=== PATIENT | female | born 1955 | race American Indian/Alaskan Native ===

== ENCOUNTER 2016-08-08 13:19 | Inpatient (IN) | payer MEDICAID, OTHER ==
[2016-08-08 13:38] VITALS: BMI 24.7
--- NOTE | 2016-08-08 14:02 | ED PDOC ---
Arrival/HPI - General Chief Complaint: Psychiatric Evaluation Time Seen by Provider: 08/08/16 13:44 Historian: Patient, EMS - History of Present Illness Narrative History of Present Illness (Text): 08/08/16 13:45 A 61 year old female brought to the emergency department from the [facility] via EMS for depression and suicidal ideations. Patient admits to having suicidal ideation but denies any plan. Patient denies any fever or other medical complaints at this time. Patient denies any homicidal ideation, visual/auditory hallucinations. Time/Duration: Prior to Arrival Symptom Onset: Sudden Symptom Course: Unchanged Quality: Other Activities at Onset: Rest Context: Other Past Medical History - Provider Review Nursing Documentation Reviewed: Yes - Infectious Disease Hx of Infectious Diseases: None - Cardiac Hx Hypertension: Yes - Endocrine/Metabolic Hx Diabetes Mellitus Type 2: Yes - Musculoskeletal/Rheumatological Other/Comment: neuropathy - Psychiatric Hx Substance Use: No Family/Social History - Physician Review Nursing Documentation Reviewed: Yes Family/Social History: Unknown Family HX Smoking Status: Never Smoked Hx Alcohol Use: No Hx Substance Use: No Allergies/Home Meds Allergies/Adverse Reactions: Allergies No Known Allergies Allergy (Verified 08/08/16 13:38) Home Medications: Home Meds Medication Instructions Recorded Confirmed Alogliptin Benzoate [Alogliptin] 25 mg PO DAILY 08/08/16 08/08/16 Calcium Carbonate [Calcium] 600 mg PO DAILY 08/08/16 08/08/16 Fluvoxamine Maleate [Fluvoxamine 300 mg PO HS 08/08/16 08/08/16 Maleate ER] Gabapentin [Neurontin] 300 mg PO TID 08/08/16 08/08/16 Lisinopril [Zestril] 10 mg PO DAILY 08/08/16 08/08/16 Metformin HCl [Glucophage] 1,000 mg PO BID 08/08/16 08/08/16 Simvastatin [Simvastatin] 10 mg PO DAILY 08/08/16 08/08/16 Ziprasidone HCl [Ziprasidone HCl] 80 mg PO BID 08/08/16 08/08/16 Review of Systems - Physician Review All systems were reviewed & negative as marked: Yes - Review of Systems Constitutional: absent: Fevers Cardiovascular: absent: Chest Pain Psychiatric: Depression, Suicidal Ideation, Other (no homicidal ideation or visual/auditory hallucinations.) Physical Exam Vital Signs Reviewed: Yes Vital Signs Temp Pulse Resp BP Pulse Ox 08/08/16 16:49 98 F 70 18 139/79 100 08/08/16 13:30 97.5 F L 70 16 116/61 99 Temperature: Afebrile Blood Pressure: Normal Pulse: Regular Respiratory Rate: Normal Appearance: Positive for: Well-Appearing, Non-Toxic, Comfortable Pain Distress: None Mental Status: Positive for: Alert and Oriented X 3 - Systems Exam Head: Present: Atraumatic, Normocephalic Pupils: Present: PERRL Extroacular Muscles: Present: EOMI Conjunctiva: Present: Normal Mouth: Present: Moist Mucous Membranes Neck: Present: Normal Range of Motion Respiratory/Chest: Present: Clear to Auscultation, Good Air Exchange. No: Respiratory Distress, Accessory Muscle Use Cardiovascular: Present: Regular Rate and Rhythm, Normal S1, S2. No: Murmurs Abdomen: Present: Normal Bowel Sounds. No: Tenderness, Distention, Peritoneal Signs Back: Present: Normal Inspection Upper Extremity: Present: Normal Inspection. No: Cyanosis, Edema Lower Extremity: Present: Normal Inspection. No: Edema Neurological: Present: GCS=15, CN II-XII Intact, Speech Normal Skin: Present: Warm, Dry, Normal Color. No: Rashes Psychiatric: Present: Alert, Oriented x 3, Normal Insight, Normal Concentration , Depressed Mood, Suicidal Ideation Medical Decision Making ED Course and Treatment: 08/08/16 13:45 Impression: A 61 year old female sent in from the [facility]. Differential Diagnosis include but are not limited to: Depression vs. Suicidal Plan: -- EKG -- Chest X-ray -- Labs -- Urinalysis -- Reassess and disposition Progress Notes: 08/08/16 15:16 ekg sinus [address] changes, medically clear - Lab Interpretations Lab Results: 08/08/16 14:17 08/08/16 14:17 Lab Results 08/08/16 14:30: Urine Color Yellow, Urine Appearance Clear, Urine pH 7.0, Ur Specific [place] 1.020, Urine Protein Trace H, Urine Glucose (UA) Negative, Urine Ketones Trace H, Urine Blood Trace-intact H, Urine Nitrate Negative, Urine Bilirubin Negative, Urine Urobilinogen 2.0 H, Ur Leukocyte Esterase Negative, Urine RBC 0 - 2, Urine WBC 0 - 2, Ur Epithelial Cells 1 - 3, Urine Bacteria Trace, Urine Opiates Screen Negative, Urine Methadone Screen Negative, Ur Barbiturates Screen Negative, Ur Phencyclidine Scrn Negative, Ur Amphetamines Screen Negative, U Benzodiazepines Scrn Negative, U Oth Cocaine Metabols Negative, U Cannabinoids Screen Negative 08/08/16 14:17: WBC 3.8 L D, RBC 4.42, Hgb 12.7, Hct 37.6, MCV 85.1, MCH 28.7, MCHC 33.8, RDW 14.0, Plt Count 209, MPV 9.2, Gran % 59.4, Lymph % (Auto) 28.5, [place] % (Auto) 9.2 H, Eos % (Auto) 2.4, Baso % (Auto) 0.5, Gran # 2.25, Lymph # 1.1 L, [place] # 0.4, Eos # 0.1, Baso # 0.02, Sodium 141, Potassium 3.9, Chloride 102, Carbon Dioxide 27, Anion Gap 16, BUN 13, Creatinine 1.1, Est GFR ( Amer) > 60, Est GFR (Non-Af Amer) 50, Random Glucose 122 H, Calcium 10.0, Total Bilirubin 0.6, AST 25, ALT 33, Alkaline Phosphatase 101, Total Protein 7.6, Albumin 4.2, Globulin 3.4, Albumin/Globulin Ratio 1.2, Salicylates < 1 L, Acetaminophen < 10.0 L, Alcohol, Quantitative < 10 I have reviewed the lab results: Yes - RAD Interpretation Radiology Orders: 08/08/16 13:50 CHEST PORTABLE [RAD] Stat - Scribe Statement The provider has reviewed the documentation as recorded by the Merlineibnatalie Whitten Provider Scribe Attestation: All medical record entries made by the Scribe were at my direction and personally dictated by me. I have reviewed the chart and agree that the record accurately reflects my personal performance of the history, physical exam, medical decision making, and the department course for this patient. I have also personally directed, reviewed, and agree with the discharge instructions and disposition. Disposition/Present on Arrival - Present on Arrival Any Indicators Present on Arrival: No History of DVT/PE: No History of Uncontrolled Diabetes: Yes Urinary Catheter: No History of Decub. Ulcer: No History Surgical Site Infection Following: None - Disposition Have Diagnosis and Disposition been Completed?: Yes Diagnosis: Depression Disposition: HOSPITALIZED Disposition Time: 17:39 Condition: STABLE
[2016-08-08 14:20] LABS: ADD MANUAL DIFF? NO
[2016-08-08 14:23] LABS: BASO # 0.02 K/mm3 (0.0-2.0); BASO % 0.5 % (0.0-3.0); EOS # 0.1 (0.0-0.7); EOS % 2.4 % (1.5-5.0); GRAN # 2.25 (1.4-6.5); GRAN % 59.4 % (50.0-68.0); HEMATOCRIT 37.6 % (36.0-48.0); LYMPH # 1.1 (1.2-3.4); LYMPH % 28.5 % (22.0-35.0); MEAN CELL VOLUME 85.1 fL (80.0-105.0); MEAN CORPUSCULAR HEMOGLOBIN 28.7 pg (25.0-35.0); MEAN CORPUSCULAR HGB CONC 33.8 g/dl (31.0-37.0); MEAN PLATELET VOLUME 9.2 fl (7.0-11.0); MONO # 0.4 (0.1-0.6); MONO % 9.2 % (1.0-6.0); PLATELET COUNT 209 10^3/uL (120.0-450.0); WHITE BLOOD COUNT 3.8 10^3/ul (4.5-11.0)
[2016-08-08 14:33] LABS: ALB/GLOB RATIO 1.2 (1.1-1.8); ALKALINE PHOSPHATASE 101 U/L (38-133); ALT/SGPT 33 U/L (7-56); AST/SGOT 25 U/L (15-39); BILIRUBIN,TOTAL 0.6 mg/dL (0.2-1.3); BLOOD UREA NITROGEN 13 mg/dL (7-21); CARBON DIOXIDE 27 mmol/L (21-33); CHLORIDE 102 mmol/L (98-107); GFR AFRICAN-AMERICAN > 60; GLUCOSE,RANDOM 122 mg/dL (70-110); POTASSIUM 3.9 mmol/L (3.6-5.0); SODIUM 141 mmol/L (132-148); TOTAL PROTEIN 7.6 g/dL (5.8-8.3)
[2016-08-08 14:38] LABS: URINE BILIRUBIN NEGATIVE (NEGATIVE); URINE BLOOD TRACE-INTACT (NEGATIVE); URINE GLUCOSE (UA) NEGATIVE (NEGATIVE); URINE KETONE TRACE mg/dL (NEGATIVE); URINE LEUKOCYTE ESTERASE NEGATIVE Leu/uL (NEGATIVE); URINE PROTEIN TRACE mg/dL (<30 mg/dL)
[2016-08-08 14:40] LABS: URINE APPEARANCE CLEAR (CLEAR); URINE COLOR YELLOW (YELLOW)
--- NOTE | 2016-08-08 14:42 | RAD ---
HISTORY: pysch COMPARISON: None available TECHNIQUE: Chest, one view. FINDINGS: LUNGS: No focal consolidation. Please note that chest x-ray has limited sensitivity for the detection of pulmonary masses. PLEURA: No significant pleural effusion identified. No definite pneumothorax . CARDIOVASCULAR: The cardiomediastinal silhouette appears within normal limits of size. OSSEOUS STRUCTURES: Degenerative changes of the spine. VISUALIZED UPPER ABDOMEN: Unremarkable. OTHER FINDINGS: None. IMPRESSION: No focal consolidation, significant pleural effusion, or definite pneumothorax identified.
[2016-08-08 14:43] LABS: URINE BACTERIA TRACE (NEG); URINE RBC 0 - 2 /hpf (0-2); URINE WBC 0 - 2 /hpf (0-6)
[2016-08-08] MEDS ORDERED: Magnesium Hydroxide Susp 30 ml UD PO PRN (18:41)
[2016-08-08] MEDS ORDERED: Alum-Mag Hydrox-Simethicone Susp (30 mL) PO PRN (18:41)
[2016-08-09 08:11] LABS: CHOLESTEROL 161 mg/dL (130-200); GLUCOSE,FASTING 112 mg/dL (65-110)
--- NOTE | 2016-08-09 11:27 | HP ---
HISTORY OF PRESENT ILLNESS: The patient is a 61-year-old -[place] female with a history of s chizoaffective disorder, as well as 2 prior to admissions and history of 2 suicide attempts, currentl y in outpatient psychiatric treatment and reportedly compliant with her medications of Geodon, Luvox and gabapentin, who was sent to [facility] upon recommendation of her provider, , due to reporting depression and having command auditory hallucinations as well as suicidal thoughts. I reviewed ER records and recent notes on the unit and met with patient at bedside. The patient is a lert and oriented x 3 and focus is fair and eye contact is good. The patient presents as a fairly re liable historian and appears appropriately engaged with my interview questions. She indicates that s he is feeling a little bit better and she denies having any discomfort or pain. She denies having an y hallucinations at this time and she denies having any suicidal thoughts. The patient reports that she has been depressed "all her life." However, her depression has worsened lately and she denies campbell ving any stressors precipitating her worsening of symptoms. Specifically, the patient has noticed in crease in hopelessness, decreased energy, decreased motivation, moodiness and restless sleep and anxi ety. The patient also reports having command auditory hallucinations of voices telling her to kill h erself.. As noted, patient denies having any of these hallucinations at this time. The patient woul d like psychiatric stabilization on the unit at this time. Her insight and judgment are considered t o be fair. Impulse is considered to be in control and intact. SOCIAL HISTORY: The patient was born in [place] and raised in [place]. The patient is single and she has never been . She has no children. She lives by herself. She is unemployed and o n disability. She denies any drug, alcohol or tobacco issues. Denies any history of legal issues. PSYCHIATRIC HISTORY: The patient reported this is the third time patient has been psychiatrically ho spitalized and indicated that she is compliant with following medications of Geodon 80 mg p.o. b.i.d. , Luvox 150 mg at bedtime, gabapentin 300 mg p.o. t.i.d. Reportedly, patient is in treatment with Dr Bird at [facility] who she saw prior to her current admission. The patient repo rts 2 prior suicide attempts, most recently was in 2001; however, the other suicide attempt occurred in 1995. IMPRESSION: 1. Rule out major depressive disorder, severe, recurrent with psychotic features. 2. Rule out schizoaffective disorder. 3. Obsessive-compulsive disorder by history. 4. Anxiety disorder, NOS. RECOMMENDATIONS: 1. Group milieu and supportive therapy. 2. Restart Geodon 80 mg p.o. b.i.d. with meals. 3. Restart Geodon 80 mg p.o. b.i.d. with meals to treat the symptoms of psychosis. 4. Restart Luvox 150 mg at bedtime to treat depression and symptoms of anxiety as well as history of OCD symptoms. 5. Restart gabapentin 300 mg p.o. t.i.d. to treat anxiety and for additional benefit in mood control . 6. Awaiting medical consult. RECENT LABORATORIES: Reviewed. On 08/08/2016, CBC showed white blood cell count 3.8, which is conside red low. Otherwise, there are no major derangements in CBC. Chemistry-8 was within normal limits, r andom glucose was 122 and 112 on 08/08 and 08/09 respectively. Otherwise, LFTs are within normal limits. Triglycerides, cholesterol and LDL were within normal limits. HDL was elevated at 78. Toxicology was all negative. Shereen Suero MD cc: [id number] TT: 08/09/2016 11:27:04 shannon
--- NOTE | 2016-08-09 15:02 | CARD ---
APPROVED REPORT EKG Measurement Heart [id number] <Conclusion> Normal sinus rhythm Possible Left atrial enlargement Borderline ECG
--- NOTE | 2016-08-09 20:25 | CON ---
DATE: 08/09/2016 ATTENDING PHYSICIAN: Dr. Suero REASON FOR CONSULTATION: Type 2 diabetes mellitus and hyperlipidemia evaluation and management. HISTORY OF PRESENT ILLNESS: A 61-year-old female admitted for new episode of major depressive disorder and possibly schizoaffective disorder. The patient apparently [facility] and complaining about suicidal thoughts, and was sent to the Emergency Room for evaluation. The patient is feeling better today. She has a history of type 2 diabetes mellitus, hyperlipidemia normally well-controlled on outpatient basis. The patient denies any headache, chest pain, shortness of breath, abdominal pain, nausea, vomiting, or dysuria. PAST MEDICAL HISTORY: Type 2 diabetes mellitus, hyperlipidemia, proteinuria, major depressive disorder, and schizoaffective disorder. PREVIOUS HOSPITALIZATION: Two previous admissions for major depression. The patient denies any surgical history. CURRENT MEDICATIONS: Include metformin 1000 mg twice a day, simvastatin 10 mg daily, lisinopril 10 mg daily, and her gabapentin 300 mg daily, Luvox 150 mg at bedtime, and Geodon 40 mg b.i.d. The patient denies any allergies. FAMILY HISTORY: Mother alive. History of hypertension and mini strokes. SOCIAL HISTORY: The patient denies any smoking, alcohol, or drug use. The patient is disabled and lives alone. The patient is independent with activity of daily living. REVIEW OF SYSTEMS: The patient denies any fever. Complaining of decrease of appetite and weight loss over the past 1 month. She denies any sore throat, dysphagia, blurry vision. The patient denies any cough, shortness of breath, wheezing. She denies any chest pain or palpitation. The patient denies any abdominal pain, nausea, vomiting, diarrhea, or constipation. The patient denies any dysuria, hematuria, or flank pain. She denies any neurological symptoms. The patient complains of being depressed, anxious, complaining of insomnia. PHYSICAL EXAMINATION: VITALS: Stable. Temperature 97.8, pulse 78, blood pressure 135/82, respiratory rate 19. Oxygen saturation was 99% on room air. The patient was alert, awake, oriented; in no acute form of distress. HEAD: Normocephalic, atraumatic. Oral mucosa was moist. NECK: Supple. No neck masses. LUNGS: Clear to auscultation. HEART: Regular rhythm and rate. ABDOMEN: Soft, nontender, nondistended. EXTREMITIES: With no edema, and full range of motion. NEUROLOGICAL EXAMINATION: Normal. DIAGNOSTIC STUDIES: Showed stable CBC with WBC 3.8, slightly lower but chronic. Her chemistry showed normal electrolytes, normal renal function. Her glucose ranges from 112-200. Her cholesterol was normal at 661. Chest x-ray showed no acute pathology. EKG showed normal sinus rhythm, possible left atrial enlargement. ASSESSMENT: 1. A 61-year-old female with history of depression, admitted for severe depressive episode. 2. Type 2 diabetes mellitus. 3. Hyperlipidemia. PLAN OF TREATMENT: The patient will be monitored with her glucose twice a day, presently without insulin coverage. Will encourage a heart-healthy diet with moderate amount of carbohydrates. We will resume her chronic medications: Metformin 1000 mg twice a day, lisinopril 10 mg daily, and atorvastatin 10 mg daily. The patient will be continued on her psychiatric medications as ordered psychiatry. Will follow the patient closely. I ordered a hemoglobin A1c for reevaluation. Nakia Coles MD cc: [id number] TT: 08/09/2016 20:24:19 Confirmation # [id number] Dictation # [id number] MTDD
[2016-08-09] MEDS ORDERED: LUVOX 100 MG PO SCH (22:00)
[2016-08-09] MEDS: FLUVOXAMINE 150 MG PO SCH (22:04)
--- NOTE | 2016-08-10 09:20 | PCM.PYCHPN ---
Psychiatric Progress Note - Psychiatric Progress Note Patient seen today, length of contact: 25 min Patient Chief Complaint: "doing okay" Problems Identified/Issues Discussed: I reviewed recent notes and met with patient at bedside. Patient indicates she is "doing okay" and feels a little bit better. She's tolerating her medications and denies any side effects. Overall her thought process is coherent and she denies any perceptual disturbance. She does not appear to be responding to internal stimuli and delusions were not elicited all weekend thus far. She denies any new discomfort or pain. Nursing notes indicate patient has been visible on the unit and generally pleasant when approached. There were no behavioral issues over the weekend Diagnostic Results: r/o Schizoaffective Disorder r/o Major depressive Disorder with psychotic fx OCD by hx Medication Change: No Medical Record Reviewed: Yes (notes, reports, labs, vitals) Mental Status Examination - Cognitive Function Orientation: Person, Place, Situation Memory: Intact Attention: WNL Concentration: WNL - Mood Mood: Depressed - Affect Affect: Constricted - Speech Speech: Appropriate - Formal Thought Process Formal Thought Process: No Impairment - Suicidal Ideation Suicidal Ideation: No - Homicidal Ideation Homicidal Ideation: No Goal/Treatment Plan - Goal/Treatment Plan Need for Continued Stay: Remain at risks for inpatient hospitalization Progress Toward Problem(s) and Goals/Treatment Plan: * c/w current tx and plan * Appreciate f/u by Dr. Coles on 08/09/16~resumed medications for DM, lipids and HTN, checking HgA1c * New weekend labs noted below: 08/10/16 07:33 TSH 3rd Generation 1.22 * Vitals reviewed and noted below: Selected Entries 08/10/16 08/10/16 07:47 09:06 Temperature 97.3 F L Pulse Rate 68 68 Respiratory 20 Rate Blood Pressure 109/72 109/72 - Smoking Cessation Smoking Cessation Initiated: No
[2016-08-11] MEDS: FLUVOXAMINE 150 MG PO SCH (07:52)
[2016-08-11 11:04] LABS: ALB/GLOB RATIO 1.2 (1.1-1.8); ALKALINE PHOSPHATASE 99 U/L (38-133); ALT/SGPT 31 U/L (7-56); AST/SGOT 20 U/L (15-39); BILIRUBIN,TOTAL 0.5 mg/dL (0.2-1.3); BLOOD UREA NITROGEN 16 mg/dL (7-21); CALCIUM 10.7 mg/dL (8.4-10.5); CARBON DIOXIDE 30 mmol/L (21-33); CHLORIDE 100 mmol/L (98-107); GFR AFRICAN-AMERICAN > 60; GLUCOSE,RANDOM 144 mg/dL (70-110); POTASSIUM 5.1 mmol/L (3.6-5.0); SODIUM 140 mmol/L (132-148); TOTAL PROTEIN 8.2 g/dL (5.8-8.3)
--- NOTE | 2016-08-11 17:03 | PCM.PYCHPN ---
Psychiatric Progress Note - Psychiatric Progress Note Patient seen today, length of contact: 30min Patient Chief Complaint: "I was stressed out, my mother had stroke, I was feeling depressed, I was hearing voices telling me to kill myself, I had bad thoughts of harming myself, I wanted to put a plastic bag on my head and fall asleep, my psychiatrist sent me here" Problems Identified/Issues Discussed: Suicide/ homicide prevention, past psychiatric h/o, current psychiatric symptoms , medical problems, risk/benefits and alternatives of medications, medications compliance, coping strategies, substance abuse h/o, relapse prevention, importance of follow up with psychiatrist and therapist, discharge plan. Medical Problems: diabetes, hyperlipidemia, hypertension Diagnostic Results: 08/08/16 14:17 08/11/16 10:50 Lab Results 08/11/16 16:05: POC Glucose (mg/dL) 167 H 08/11/16 10:50: Sodium 140, Potassium 5.1 H, Chloride 100, Carbon Dioxide 30, Anion Gap 15, BUN 16, Creatinine 1.1, Est GFR ( Amer) > 60, Est GFR (Non- Af Amer) 50, Random Glucose 144 H, Calcium 10.7 H, Total Bilirubin 0.5, AST 20, ALT 31, Alkaline Phosphatase 99, Total Protein 8.2, Albumin 4.5, Globulin 3.7, Albumin/Globulin Ratio 1.2 08/11/16 07:31: POC Glucose (mg/dL) 130 H 08/10/16 16:57: POC Glucose (mg/dL) 219 H 08/10/16 07:48: POC Glucose (mg/dL) 132 H 08/10/16 07:33: Hemoglobin A1c 6.9 H, TSH 3rd Generation 1.22 08/09/16 16:38: POC Glucose (mg/dL) 236 H 08/09/16 11:58: POC Glucose (mg/dL) 129 H 08/09/16 07:57: Fasting Glucose 112 H, Triglycerides 70, Cholesterol 161, LDL Cholesterol Direct 69, HDL Cholesterol 78 H 08/08/16 14:30: Urine Color Yellow, Urine Appearance Clear, Urine pH 7.0, Ur Specific [place] 1.020, Urine Protein Trace H, Urine Glucose (UA) Negative, Urine Ketones Trace H, Urine Blood Trace-intact H, Urine Nitrate Negative, Urine Bilirubin Negative, Urine Urobilinogen 2.0 H, Ur Leukocyte Esterase Negative, Urine RBC 0 - 2, Urine WBC 0 - 2, Ur Epithelial Cells 1 - 3, Urine Bacteria Trace, Urine Opiates Screen Negative, Urine Methadone Screen Negative, Ur Barbiturates Screen Negative, Ur Phencyclidine Scrn Negative, Ur Amphetamines Screen Negative, U Benzodiazepines Scrn Negative, U Oth Cocaine Metabols Negative, U Cannabinoids Screen Negative 08/08/16 14:17: WBC 3.8 L D, RBC 4.42, Hgb 12.7, Hct 37.6, MCV 85.1, MCH 28.7, MCHC 33.8, RDW 14.0, Plt Count 209, MPV 9.2, Gran % 59.4, Lymph % (Auto) 28.5, [place] % (Auto) 9.2 H, Eos % (Auto) 2.4, Baso % (Auto) 0.5, Gran # 2.25, Lymph # 1.1 L, [place] # 0.4, Eos # 0.1, Baso # 0.02, Sodium 141, Potassium 3.9, Chloride 102, Carbon Dioxide 27, Anion Gap 16, BUN 13, Creatinine 1.1, Est GFR ( Amer) > 60, Est GFR (Non-Af Amer) 50, Random Glucose 122 H, Calcium 10.0, Total Bilirubin 0.6, AST 25, ALT 33, Alkaline Phosphatase 101, Total Protein 7.6, Albumin 4.2, Globulin 3.4, Albumin/Globulin Ratio 1.2, Salicylates < 1 L, Acetaminophen < 10.0 L, Alcohol, Quantitative < 10 Vital Signs Temp Pulse Resp BP Pulse Ox 08/11/16 08:52 74 120/81 08/11/16 07:00 97.9 F 74 20 120/81 08/10/16 09:06 68 109/72 08/10/16 07:47 97.3 F L 68 20 109/72 08/09/16 19:36 87 115/74 08/09/16 09:27 78 134/82 08/09/16 06:00 97.8 F 78 19 134/82 99 08/08/16 16:49 98 F 70 18 139/79 100 08/08/16 13:30 97.5 F L 70 16 116/61 99 DSM 5 Symptoms Update: Shortly patient is 61 years old -Citizen Of [place] female, patient has history of mental illness, most likely schizoaffective disorder, patient currently under care of [facility], patient was sent for further evaluation by her primary psychiatrist for worsening of depression, suicidal ideation with a plan to suffocate herself with a plastic bag. Patient reported being compliant with the medications, patient needs to be observed, evaluated, medications adjustment. patient was seen and examined, discussed with staff, Dr. Gaona notes reviewed. Patient was seen at the treatment team today, patient presented to have fair personal hygiene, good ADLs. Patient reported that she was stressed out about multiple problems, including her mother had recent stroke, patient reported that she was feeling more depressed than usual, patient reported that she had suicidal ideation with a plan to put plastic bag on her head and fall asleep. Patient reported that she shares her thoughts with her psychiatrist who sent her to the psychiatric evaluation and stabilization. Patient reported that she hears voices to telling her to end up her life. Patient denied being paranoid but patient appears to be suspicious. Patient reported that she feels anxious, patient reported to have sleep disturbances "either I'm sleeping too much, or not at all". Patient reported that she was compliant with medications, no side effects observed, patient impression was that she was stressed out and that is why she was depressed, had difficulties to fall asleep and stay asleep, as well as having psychotic symptoms. Patient denied using drugs, denied drinking alcohol, denies smoking cigarettes. Ported history of mental illness, reported to have to admissions into psychiatric inpatient unit first 1995 and the second in [address] Giles services. patient's confirmed and resumed by Dr. Gaona, patient reported to feel little better, reported no side effects from the medication and none was observed or reported, aims 0, no EPS. Impression; Diagnostic Results: r/o Schizoaffective Disorder r/o Major depressive Disorder with psychotic fx OCD by hx She reported that she was on Luvox, as well as geodon, medications were resumed by Dr. Gaona, Luvox is nonformulary in the hospital. Patient was educated about Prozac, patient is willing to try that medication. Medication Change: Yes (Prozac started, Luvox discontinued.) Medical Record Reviewed: Yes (notes, reports, labs, vitals) Consults ordered or reviewed: medical consult appreciated see notes for more detailed information. Mental Status Examination - Cognitive Function Orientation: Person, Place, Situation Memory: Intact Attention: Poor Concentration: Poor Association: Loose Fund of Knowledge: WNL - Mood Mood: Depressed, Anxious - Affect Affect: Constricted - Speech Speech: Appropriate - Formal Thought Process Formal Thought Process: No Impairment - Suicidal Ideation Suicidal Ideation: No - Homicidal Ideation Homicidal Ideation: No Goal/Treatment Plan - Goal/Treatment Plan Need for Continued Stay: Remain at risks for inpatient hospitalization, Severe depression anxiety, Discharge may exacerbated symptoms, Severe functional impairment Progress Toward Problem(s) and Goals/Treatment Plan: milieu, structure supportive therapy Geodon will be continued 40 mg twice a day for psychosis and mood stabilization Fluvoxamine will be discontinued because it will not help patient with depressive symptoms We'll start Prozac 20 mg daily for depression and anxiety as well as OCD Sonata will be increased to 10 mg at the nighttime for insomnia Neurontin 300 mg 3 times a day We'll monitor labs Medical consult appreciated Social work evaluation We'll monitor closely Estimated Date of D/C: 08/14/16 (monitor closely)
--- NOTE | 2016-08-11 23:05 | PN ---
DATE: 08/11/2016 SUBJECTIVE: The patient was admitted for a depression episode. The patient with history of type 2 diabetes mellitus, presently well controlled with medication. She denies any new medical problems. Her appetite is good. PHYSICAL EXAMINATION: VITAL SIGNS: Stable. Temperature 97.9, pulse 74, blood pressure 120/81 and respiratory rate 20. GENERAL: She is comfortable, sitting up in a chair, alert, awake, oriented. HEENT: Head is normocephalic, atraumatic. Oral mucosa is moist. NECK: Supple. LUNGS: Clear to auscultation. HEART: Regular rhythm and rate. ABDOMEN: Soft, nontender, nondistended. EXTREMITIES: With no edema. LABORATORY DATA: Hemoglobin A1c is 6.9. Her glucose remains stable. She has increase of glucose pre-dinnertime. Thyroid level is normal. ASSESSMENT: A 61-year-old female with history of type 2 diabetes mellitus, controlled with present medication, admitted for depression, hyperlipidemia. PLAN OF TREATMENT: We will continue monitoring glucose twice a day. Continue current medication. Nakia Coles MD cc: [id number] TT: 08/11/2016 23:05:06 Confirmation # [id number] Dictation # [id number] fatmata MONTEIRO
--- NOTE | 2016-08-12 16:35 | PCM.PYCHPN ---
Psychiatric Progress Note - Psychiatric Progress Note Patient seen today, length of contact: 30min Patient Chief Complaint: "I feel little better, but I am not sleeping, I do not know what is the problem " Problems Identified/Issues Discussed: Suicide/ homicide prevention, past psychiatric h/o, current psychiatric symptoms , medical problems, risk/benefits and alternatives of medications, medications compliance, coping strategies, substance abuse h/o, relapse prevention, importance of follow up with psychiatrist and therapist, discharge plan. Medical Problems: diabetes, hyperlipidemia, hypertension Diagnostic Results: 08/08/16 14:17 08/11/16 10:50 Lab Results 08/11/16 16:05: POC Glucose (mg/dL) 167 H 08/11/16 10:50: Sodium 140, Potassium 5.1 H, Chloride 100, Carbon Dioxide 30, Anion Gap 15, BUN 16, Creatinine 1.1, Est GFR ( Amer) > 60, Est GFR (Non- Af Amer) 50, Random Glucose 144 H, Calcium 10.7 H, Total Bilirubin 0.5, AST 20, ALT 31, Alkaline Phosphatase 99, Total Protein 8.2, Albumin 4.5, Globulin 3.7, Albumin/Globulin Ratio 1.2 08/11/16 07:31: POC Glucose (mg/dL) 130 H 08/10/16 16:57: POC Glucose (mg/dL) 219 H 08/10/16 07:48: POC Glucose (mg/dL) 132 H 08/10/16 07:33: Hemoglobin A1c 6.9 H, TSH 3rd Generation 1.22 08/09/16 16:38: POC Glucose (mg/dL) 236 H 08/09/16 11:58: POC Glucose (mg/dL) 129 H 08/09/16 07:57: Fasting Glucose 112 H, Triglycerides 70, Cholesterol 161, LDL Cholesterol Direct 69, HDL Cholesterol 78 H 08/08/16 14:30: Urine Color Yellow, Urine Appearance Clear, Urine pH 7.0, Ur Specific [place] 1.020, Urine Protein Trace H, Urine Glucose (UA) Negative, Urine Ketones Trace H, Urine Blood Trace-intact H, Urine Nitrate Negative, Urine Bilirubin Negative, Urine Urobilinogen 2.0 H, Ur Leukocyte Esterase Negative, Urine RBC 0 - 2, Urine WBC 0 - 2, Ur Epithelial Cells 1 - 3, Urine Bacteria Trace, Urine Opiates Screen Negative, Urine Methadone Screen Negative, Ur Barbiturates Screen Negative, Ur Phencyclidine Scrn Negative, Ur Amphetamines Screen Negative, U Benzodiazepines Scrn Negative, U Oth Cocaine Metabols Negative, U Cannabinoids Screen Negative 08/08/16 14:17: WBC 3.8 L D, RBC 4.42, Hgb 12.7, Hct 37.6, MCV 85.1, MCH 28.7, MCHC 33.8, RDW 14.0, Plt Count 209, MPV 9.2, Gran % 59.4, Lymph % (Auto) 28.5, [place] % (Auto) 9.2 H, Eos % (Auto) 2.4, Baso % (Auto) 0.5, Gran # 2.25, Lymph # 1.1 L, [place] # 0.4, Eos # 0.1, Baso # 0.02, Sodium 141, Potassium 3.9, Chloride 102, Carbon Dioxide 27, Anion Gap 16, BUN 13, Creatinine 1.1, Est GFR ( Amer) > 60, Est GFR (Non-Af Amer) 50, Random Glucose 122 H, Calcium 10.0, Total Bilirubin 0.6, AST 25, ALT 33, Alkaline Phosphatase 101, Total Protein 7.6, Albumin 4.2, Globulin 3.4, Albumin/Globulin Ratio 1.2, Salicylates < 1 L, Acetaminophen < 10.0 L, Alcohol, Quantitative < 10 Vital Signs Temp Pulse Resp BP Pulse Ox 08/11/16 08:52 74 120/81 08/11/16 07:00 97.9 F 74 20 120/81 08/10/16 09:06 68 109/72 08/10/16 07:47 97.3 F L 68 20 109/72 08/09/16 19:36 87 115/74 08/09/16 09:27 78 134/82 08/09/16 06:00 97.8 F 78 19 134/82 99 08/08/16 16:49 98 F 70 18 139/79 100 08/08/16 13:30 97.5 F L 70 16 116/61 99 Temp Pulse Resp BP Pulse Ox 97.5 F L 73 18 108/73 99 08/12/16 08:24 08/12/16 09:46 08/12/16 08:24 08/12/16 09:46 08/09/16 06:00 DSM 5 Symptoms Update: Shortly patient is 61 years old -[place] female, patient has history of mental illness, most likely schizoaffective disorder, patient currently under care of [facility], patient was sent for further evaluation by her primary psychiatrist for worsening of depression, suicidal ideation with a plan to suffocate herself with a plastic bag. Patient reported being compliant with the medications, patient needs to be observed, evaluated, medications adjustment. patient was seen and examined, discussed with staff, Dr. Gaona notes reviewed. Patient was seen in the hallway today, patient presented to have fair personal hygiene, good ADLs. pt reported that she is "doing better", pt reported her mood symptoms are "improving", pt denied thoughts of harming self or others (pt had suicidal plan to put plastic bag on her head and suffocate herself prior to come to the hospital), when was asked what have changed, pt said "I was stressed out, I needed to have this admission to calm down and adjust my medications". Patient denied being paranoid but patient appears to be guarded, with improvement. Patient reported that she feels anxious, c/o insomnia, will implement ambien. pt reported no side effects from the medication and none was observed or reported, aims 0, no EPS. pt was on Luvox, as well as geodon, medications were resumed by Dr. Gaona, Luvox is nonformulary in the hospital. Patient was educated about Prozac initiated 08/11/16 Impression; Diagnostic Results: r/o Schizoaffective Disorder r/o Major depressive Disorder with psychotic fx OCD by hx She reported that she Medication Change: Yes (Prozac was started 08/11/16) Medical Record Reviewed: Yes (notes, reports, labs, vitals) Consults ordered or reviewed: medical consult appreciated see notes for more detailed information. Mental Status Examination - Cognitive Function Orientation: Person, Place, Situation Memory: Intact Attention: Poor (some improvement) Concentration: Poor (some improvement) Association: Loose (some improvement) Fund of Knowledge: WNL - Mood Mood: Depressed (some improvement), Anxious (some improvement) - Affect Affect: Constricted - Speech Speech: Appropriate - Formal Thought Process Formal Thought Process: No Impairment - Suicidal Ideation Suicidal Ideation: No - Homicidal Ideation Homicidal Ideation: No Goal/Treatment Plan - Goal/Treatment Plan Need for Continued Stay: Remain at risks for inpatient hospitalization, Severe depression anxiety, Discharge may exacerbated symptoms, Severe functional impairment Progress Toward Problem(s) and Goals/Treatment Plan: milieu, structure supportive therapy Geodon will be continued 40 mg twice a day for psychosis and mood stabilization Fluvoxamine will be discontinued because it will not help patient with depressive symptoms, was nonformulary in the hospital Prozac 20 mg daily for depression and anxiety as well as OCD, started 08/11/16 Sonata d/c no effect ambien 5mg po hs initiated 08/12/16 Neurontin 300 mg 3 times a day We'll monitor labs Medical consult appreciated Social work evaluation We'll monitor closely Estimated Date of D/C: 08/14/16 (monitor closely)
[2016-08-13 06:24] VITALS: O2SAT 97
--- NOTE | 2016-08-13 11:30 | PCM.PYCHPN ---
Psychiatric Progress Note - Psychiatric Progress Note Patient seen today, length of contact: 25 min Patient Chief Complaint: "doing good" Problems Identified/Issues Discussed: I reviewed recent notes and met with patient at bedside. Patient indicates she is "doing good" and her anxiety is better. Feels more hopeful and she is looking forward to discharge. Her thought process is coherent and responses are relevant to questioning. Affect is brighter and more related than admission. She 's tolerating her medications and denies any side effects. She continues to deny any new discomfort or pain. Nursing notes indicate patient has been visible on the unit and generally pleasant when approached. Visited with her mother yesterday. There were no behavioral issues overnight. Diagnostic Results: r/o Schizoaffective Disorder r/o Major depressive Disorder with psychotic fx OCD by hx Medication Change: No ( ) Medical Record Reviewed: Yes (notes, reports, labs, vitals) Mental Status Examination - Cognitive Function Orientation: Person, Place, Situation Memory: Intact Attention: WNL (some improvement) Concentration: WNL (some improvement) Association: WNL (some improvement) Fund of Knowledge: WNL - Mood Mood: Depressed ("getting better"), Anxious (some improvement) - Affect Affect: Constricted - Speech Speech: Appropriate - Formal Thought Process Formal Thought Process: No Impairment - Suicidal Ideation Suicidal Ideation: No - Homicidal Ideation Homicidal Ideation: No Goal/Treatment Plan - Goal/Treatment Plan Need for Continued Stay: Remain at risks for inpatient hospitalization, Severe depression anxiety, Discharge may exacerbated symptoms, Severe functional impairment Progress Toward Problem(s) and Goals/Treatment Plan: * c/w current tx and plan * c/w Geodon 80 mg po BID for psychosis and mood stabilization * c/w Prozac 20 mg po daily for depression and hx of OCD symptoms * c/w Neurontin 300 mg po TID for anxiety and mood control * c/w ambien 5 mg HS for insomnia * Vitals reviewed and noted below: Selected Entries 08/13/16 06:00 Temperature 98.2 F Pulse Rate 87 Respiratory 20 Rate Blood Pressure 97/67 L * No new labs overnight * Discharge planned for 08/14/16 if patient maintains stability Estimated Date of D/C: 08/14/16 (monitor closely)
[2016-08-14 06:17] VITALS: BP 91/61; RESP 18; TEMP 97.8
[2016-08-14 08:27] VITALS: PULSE 92
--- NOTE | 2016-08-14 10:00 | PCM.PYCHDC ---
Mental Status Examination - Mental Status Examination Orientation: Person, Place, Situation, Time Memory: Intact Mood: Neutral Affect: Broad Speech: Appropriate Attention: WNL Concentration: WNL Association: WNL Fund of Knowledge: WNL Formal Thought Process: No Impairment Description of patient's judgement and insight: Improved and fair I/J Psychotic Thoughts and Behaviors: No AVH, no PI, no delusions elicited Suicidal Ideation: No Current Homicidal Ideation?: No Discharge Summary - Discharge Note Reason for Hospitalization: Shortly patient is 61 years old -[place]ian female, patient has history of mental illness, most likely schizoaffective disorder, patient currently under care of [facility], patient was sent for further evaluation by her primary psychiatrist for worsening of depression, suicidal ideation with a plan to suffocate herself with a plastic bag. Patient reported being compliant with the medications, patient needs to be observed, evaluated, medications adjustment. Laboratory Data: Laboratory Tests 08/08/16 08/08/16 08/09/16 14:17 14:30 07:57 WBC 3.8 L D RBC 4.42 Hgb 12.7 Hct 37.6 MCV 85.1 MCH 28.7 MCHC 33.8 RDW 14.0 Plt Count 209 MPV 9.2 Gran % 59.4 Lymph % (Auto) 28.5 [place] % (Auto) 9.2 H Eos % (Auto) 2.4 Baso % (Auto) 0.5 Gran # 2.25 Lymph # 1.1 L [place] # 0.4 Eos # 0.1 Baso # 0.02 Sodium 141 Potassium 3.9 Chloride 102 Carbon Dioxide 27 Anion Gap 16 BUN 13 Creatinine 1.1 Est GFR ( Amer) > 60 Est GFR (Non-Af Amer) 50 POC Glucose (mg/dL) Random Glucose 122 H Fasting Glucose 112 H Hemoglobin A1c Calcium 10.0 Total Bilirubin 0.6 AST 25 ALT 33 Alkaline Phosphatase 101 Total Protein 7.6 Albumin 4.2 Globulin 3.4 Albumin/Globulin Ratio 1.2 Triglycerides 70 Cholesterol 161 LDL Cholesterol Direct 69 HDL Cholesterol 78 H TSH 3rd Generation Urine Color Yellow Urine Appearance Clear Urine pH 7.0 Ur Specific [place] 1.020 Urine Protein Trace H Urine Glucose (UA) Negative Urine Ketones Trace H Urine Blood Trace-intact H Urine Nitrate Negative Urine Bilirubin Negative Urine Urobilinogen 2.0 H Ur Leukocyte Esterase Negative Urine RBC 0 - 2 Urine WBC 0 - 2 Ur Epithelial Cells 1 - 3 Urine Bacteria Trace Salicylates < 1 L Urine Opiates Screen Negative Urine Methadone Screen Negative Acetaminophen < 10.0 L Ur Barbiturates Screen Negative Ur Phencyclidine Scrn Negative Ur Amphetamines Screen Negative U Benzodiazepines Scrn Negative U Oth Cocaine Metabols Negative U Cannabinoids Screen Negative Alcohol, Quantitative < 10 08/09/16 08/09/16 08/10/16 11:58 16:38 07:33 WBC RBC Hgb Hct MCV MCH MCHC RDW Plt Count MPV Gran % Lymph % (Auto) [place] % (Auto) Eos % (Auto) Baso % (Auto) Gran # Lymph # [place] # Eos # Baso # Sodium Potassium Chloride Carbon Dioxide Anion Gap BUN Creatinine Est GFR ( Amer) Est GFR (Non-Af Amer) POC Glucose (mg/dL) 129 H 236 H Random Glucose Fasting Glucose Hemoglobin A1c 6.9 H Calcium Total Bilirubin AST ALT Alkaline Phosphatase Total Protein Albumin Globulin Albumin/Globulin Ratio Triglycerides Cholesterol LDL Cholesterol Direct HDL Cholesterol TSH 3rd Generation 1.22 Urine Color Urine Appearance Urine pH Ur Specific [place] Urine Protein Urine Glucose (UA) Urine Ketones Urine Blood Urine Nitrate Urine Bilirubin Urine Urobilinogen Ur Leukocyte Esterase Urine RBC Urine WBC Ur Epithelial Cells Urine Bacteria Salicylates Urine Opiates Screen Urine Methadone Screen Acetaminophen Ur Barbiturates Screen Ur Phencyclidine Scrn Ur Amphetamines Screen U Benzodiazepines Scrn U Oth Cocaine Metabols U Cannabinoids Screen Alcohol, Quantitative 08/10/16 08/10/16 08/11/16 07:48 16:57 07:31 WBC RBC Hgb Hct MCV MCH MCHC RDW Plt Count MPV Gran % Lymph % (Auto) [place] % (Auto) Eos % (Auto) Baso % (Auto) Gran # Lymph # [place] # Eos # Baso # Sodium Potassium Chloride Carbon Dioxide Anion Gap BUN Creatinine Est GFR ( Amer) Est GFR (Non-Af Amer) POC Glucose (mg/dL) 132 H 219 H 130 H Random Glucose Fasting Glucose Hemoglobin A1c Calcium Total Bilirubin AST ALT Alkaline Phosphatase Total Protein Albumin Globulin Albumin/Globulin Ratio Triglycerides Cholesterol LDL Cholesterol Direct HDL Cholesterol TSH 3rd Generation Urine Color Urine Appearance Urine pH Ur Specific [place] Urine Protein Urine Glucose (UA) Urine Ketones Urine Blood Urine Nitrate Urine Bilirubin Urine Urobilinogen Ur Leukocyte Esterase Urine RBC Urine WBC Ur Epithelial Cells Urine Bacteria Salicylates Urine Opiates Screen Urine Methadone Screen Acetaminophen Ur Barbiturates Screen Ur Phencyclidine Scrn Ur Amphetamines Screen U Benzodiazepines Scrn U Oth Cocaine Metabols U Cannabinoids Screen Alcohol, Quantitative 08/11/16 08/11/16 08/12/16 10:50 16:05 07:40 WBC RBC Hgb Hct MCV MCH MCHC RDW Plt Count MPV Gran % Lymph % (Auto) [place] % (Auto) Eos % (Auto) Baso % (Auto) Gran # Lymph # [place] # Eos # Baso # Sodium 140 Potassium 5.1 H Chloride 100 Carbon Dioxide 30 Anion Gap 15 BUN 16 Creatinine 1.1 Est GFR ( Amer) > 60 Est GFR (Non-Af Amer) 50 POC Glucose (mg/dL) 167 H 111 H Random Glucose 144 H Fasting Glucose Hemoglobin A1c Calcium 10.7 H Total Bilirubin 0.5 AST 20 ALT 31 Alkaline Phosphatase 99 Total Protein 8.2 Albumin 4.5 Globulin 3.7 Albumin/Globulin Ratio 1.2 Triglycerides Cholesterol LDL Cholesterol Direct HDL Cholesterol TSH 3rd Generation Urine Color Urine Appearance Urine pH Ur Specific [place] Urine Protein Urine Glucose (UA) Urine Ketones Urine Blood Urine Nitrate Urine Bilirubin Urine Urobilinogen Ur Leukocyte Esterase Urine RBC Urine WBC Ur Epithelial Cells Urine Bacteria Salicylates Urine Opiates Screen Urine Methadone Screen Acetaminophen Ur Barbiturates Screen Ur Phencyclidine Scrn Ur Amphetamines Screen U Benzodiazepines Scrn U Oth Cocaine Metabols U Cannabinoids Screen Alcohol, Quantitative 08/12/16 08/13/16 08/13/16 16:51 06:08 16:16 WBC RBC Hgb Hct MCV MCH MCHC RDW Plt Count MPV Gran % Lymph % (Auto) [place] % (Auto) Eos % (Auto) Baso % (Auto) Gran # Lymph # [place] # Eos # Baso # Sodium Potassium Chloride Carbon Dioxide Anion Gap BUN Creatinine Est GFR ( Amer) Est GFR (Non-Af Amer) POC Glucose (mg/dL) 145 H 121 H 157 H Random Glucose Fasting Glucose Hemoglobin A1c Calcium Total Bilirubin AST ALT Alkaline Phosphatase Total Protein Albumin Globulin Albumin/Globulin Ratio Triglycerides Cholesterol LDL Cholesterol Direct HDL Cholesterol TSH 3rd Generation Urine Color Urine Appearance Urine pH Ur Specific [place] Urine Protein Urine Glucose (UA) Urine Ketones Urine Blood Urine Nitrate Urine Bilirubin Urine Urobilinogen Ur Leukocyte Esterase Urine RBC Urine WBC Ur Epithelial Cells Urine Bacteria Salicylates Urine Opiates Screen Urine Methadone Screen Acetaminophen Ur Barbiturates Screen Ur Phencyclidine Scrn Ur Amphetamines Screen U Benzodiazepines Scrn U Oth Cocaine Metabols U Cannabinoids Screen Alcohol, Quantitative 08/13/16 08/14/16 21:31 07:13 WBC RBC Hgb Hct MCV MCH MCHC RDW Plt Count MPV Gran % Lymph % (Auto) [place] % (Auto) Eos % (Auto) Baso % (Auto) Gran # Lymph # [place] # Eos # Baso # Sodium Potassium Chloride Carbon Dioxide Anion Gap BUN Creatinine Est GFR ( Amer) Est GFR (Non-Af Amer) POC Glucose (mg/dL) 200 H 124 H Random Glucose Fasting Glucose Hemoglobin A1c Calcium Total Bilirubin AST ALT Alkaline Phosphatase Total Protein Albumin Globulin Albumin/Globulin Ratio Triglycerides Cholesterol LDL Cholesterol Direct HDL Cholesterol TSH 3rd Generation Urine Color Urine Appearance Urine pH Ur Specific [place] Urine Protein Urine Glucose (UA) Urine Ketones Urine Blood Urine Nitrate Urine Bilirubin Urine Urobilinogen Ur Leukocyte Esterase Urine RBC Urine WBC Ur Epithelial Cells Urine Bacteria Salicylates Urine Opiates Screen Urine Methadone Screen Acetaminophen Ur Barbiturates Screen Ur Phencyclidine Scrn Ur Amphetamines Screen U Benzodiazepines Scrn U Oth Cocaine Metabols U Cannabinoids Screen Alcohol, Quantitative Abnormal Lab Results 08/13/16 08/13/16 08/13/16 06:08 16:16 21:31 POC Glucose (mg/dL) 121 H 157 H 200 H Consultations:: List each consultation separately and include: 1. Reason for request. 2. Findings. 3. Follow-up Consultations: Dr. Coles saw patient on 08/09/16 and 08/11/16 for medical f/u. Restarted Metformin 1000 BID, Lisinopril 10 mg daily, Atorvastatin 10 mg daily Summary of Hospital Course include:: 1. Description of specific treatment plan utilized for patients during their course of treatmen. 2. Summarize the time- course for resolution of acute symptoms and/or regressed behaviors. 3. Describe issues identified and worked on during hospitalization. 4. Describe medication utilized. 5. Describe medical problems identified and treated. 6. Reassessment of suicide risk Summary of Hospital Course: Pt scheduled for discharge today and this provider meets with her to ensure stability for discharge. Patient reports improvement since her admission and denies having any new concerns. Indicates mood is improved and that she is more hopeful. Denies having any wishes, suicidal thoughts or thoughts to harm others. Patient also denies having any perceptual disturbance and she is not responding internal stimuli. Delusions were not elicited during today's interview. Focus and eye contact are good. Patient is related and affect demonstrates moderate range with appropriate reactivity. Overall she feels very comfortable with today's discharge date and after care plans. 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 DISCHARGE MEDICATIONS, 2 WEEKS AND 2 RF CALLED INTO [facility] [phone] * Geodon 80 mg po BID for psychosis and mood stabilization * Prozac 20 mg po daily for depression and hx of OCD symptoms * Neurontin 300 mg po TID for anxiety and mood control Prescriptions/Medication Reconciliation: Zolpidem [Ambien] 5 mg PO HS #0 tab Ziprasidone [Geodon Cap] 80 mg PO BRKDIN #0 cap Gabapentin [Neurontin] 300 mg PO TID #0 cap FLUoxetine [Prozac] 20 mg PO DAILY #0 cap - Smoking Cessation Smoking Cessation Medication prescribed: No - Antipsychotic Medications Pt discharged on 2 or more routine antipsychotic medications: No
== END 2016-08-14 09:53 | disposition home or self-care (01) | DRG 430 ==
LOC: ED 13:19 → ERH 16:06 → PSYC 17:08
PROVIDERS: ADMIT Psychiatry & Neurology Psychiatry; ATTEND Psychiatry & Neurology Psychiatry
PROC: GZ3ZZZZ Medication Management (ICD-10-PCS; principal; 2016-08-09)
DX: F32.3 Major depressive disorder, single episode, severe with psychotic features (principal); R45.851 Suicidal ideations; F42.9 Obsessive-compulsive disorder, unspecified; F25.9 Schizoaffective disorder, unspecified; E11.9 Type 2 diabetes mellitus without complications; F41.9 Anxiety disorder, unspecified; G47.00 Insomnia, unspecified; E78.5 Hyperlipidemia, unspecified; I10 Essential (primary) hypertension; Z82.49 Family history of ischemic heart disease and other diseases of the circulatory system; Z82.3 Family history of stroke